=== PATIENT | male | born 1990 | race Caucasian/White ===

== ENCOUNTER 2025-05-23 08:11 | Emergency (ER) | payer BC ==
[~2025-05-23] VITALS: Ht 185.4 cm; Wt 74.8 kg
[2025-05-23] MEDS ORDERED: LIDOCAINE 1% INJ 50 ML MDV IJ ONE (08:29)
[2025-05-23] MEDS: LIDOCAINE 1% INJ 50 ML MDV IJ ONE (08:54)
[2025-05-23] MEDS ORDERED: MUPI1OIN5 TP (09:21)
[2025-05-23] MEDS ORDERED: CLIN300C12 PO (09:21)
[2025-05-23 09:36] VITALS: BP 140/87; TEMP 98.5; O2SAT 98
== END 2025-05-23 09:37 | disposition home or self-care (01) ==
LOC: ER 08:17
DX: L03.012 Cellulitis of left finger (principal); L73.8 Other specified follicular disorders; J45.909 Unspecified asthma, uncomplicated; F14.10 Cocaine abuse, uncomplicated; Z88.6 Allergy status to analgesic agent
CPT/HCPCS: 26011; 99284; A6403; J3490

== ENCOUNTER 2025-05-28 09:40 | Emergency (ER) | payer BC ==
[~2025-05-28] VITALS: Ht 177.8 cm; Wt 74.8 kg
[~2025-05-28 09:40] MED LIST: CLIN300C12 PO; MUPI1OIN5 TP
[2025-05-28 09:49] VITALS: BP 110/67; TEMP 98.2
[2025-05-28 11:06] VITALS: O2SAT 99
== END 2025-05-28 11:06 | disposition home or self-care (01) ==
LOC: ER 09:40
DX: L03.012 Cellulitis of left finger (principal); J45.909 Unspecified asthma, uncomplicated; F19.10 Other psychoactive substance abuse, uncomplicated; Z88.6 Allergy status to analgesic agent; Z98.890 Other specified postprocedural states